=== PATIENT | male | born 1985 | race Caucasian/White ===

== ENCOUNTER 2022-12-06 15:56 | Emergency (ER) | payer OTHER, SELFPAY ==
--- NOTE | ~2022-12-06 | XR_ITS ---
EXAMINATION: XR knee LT 3V DATE: 12/06/2022 16:16 INDICATION: Left knee pain TECHNIQUE: Three views of the left knee were obtained. COMPARISON: None. FINDINGS: Alignment is normal. No fracture or osteochondral lesion. Joint spaces are normal with no e rosions. No joint effusion/synovitis. Soft tissues are unremarkable. IMPRESSION: 1. No acute osseous abnormality. Reviewed, dictated and finalized at location [facility] [employer]
[2022-12-06 16:07] VITALS: BP 132/89; PULSE 77; RESP 16; TEMP 36.5; O2SAT 100
--- NOTE | 2022-12-06 16:13 | ED.LOWEXIN ---
HPI - Extremity Injury (Lower) General Chief Complaint: Extremity Injury, Lower Stated Complaint: lt knee injury Time Seen by Provider: 12/06/22 16:20 Source: patient, RN notes reviewed and old records reviewed Mode of arrival: ambulatory Limitations: no limitations History of Present Illness HPI Narrative: 37-year-old male presents to the [facility] with medial left knee pain that has been going on for couple of weeks. Patient states that he started playing basketball on . And states the pain started shortly after starting to play. Reports pain is normally better by Friday. Was playing last night and had a sharp pain along the medial aspect of the left knee. Has full range of motion Patient states when he tries to squat down he feels like the knee is about to give out. No numbness or tingling. No treatment prior to arrival Related Data Home Medications Medication Instructions Recorded Confirmed dexmethylphenidate 40 mg 40 mg PO DAILY 12/06/22 12/06/22 capsule,extended release -74 Allergies Allergy/AdvReac Type Severity Reaction Status Date / Time No Known Allergies Allergy Unverified 12/06/22 16:04 Review of Systems Review of Systems: All systems reviewed & are unremarkable except as noted in HPI and below Constitutional: Constitutional: Reports no additional constitutional complaints Eyes: Eyes: Reports no additional eye complaints ENT: Reports system reviewed and no additional complaints, except as documented Cardiovascular: Cardiovascular: Reports no additional cardiovascular complaints, Denies chest pain and Denies dyspnea Respiratory: Respiratory: Reports no additional respiratory complaints, Denies chest congestion, Denies cough and Denies dyspnea Gastrointestinal: Gastrointestinal: Reports no additional gastrointestinal complaints, Denies abdominal pain, Denies nausea and Denies vomiting Musculoskeletal: Musculoskeletal: Reports as per HPI Integumentary/Breasts: Skin/Breast: Reports system reviewed and no additional complaints, except as docu Neurologic: Reports system reviewed and no additional complaints, except as documented Psychiatric: Psychiatric: Reports no additional psychiatric complaints Allergic/Immunologic: Allergic/Immunologic: Reports no additional allergic/immunologic complaints PMFSH Comments At the time of my signature, I reviewed and agree with the nursing past medical, surgical, social, and family history. There is no relevant family history pertinent to the patient complaint. Exam Const: General: cooperative, healthy appearing, comfortable, no acute distress, well developed, alert and well nourished Nutritional Appearance: well nourished Orientation/consciousness: patient oriented x3 Limitations: no limitations HENMT: Head: normal to inspection Ears: hearing grossly normal bilaterally and external ears normal Face/Nose/Sinus: Normal external nose present, Normal nares present, Normal nasal mucous membranes and turbinates present and normal facial exam Face and sinus: normal facial exam Mouth: Yes Normal oral and palatal mucosa present, Yes lip normal and Yes moist mucous membranes Eyes: General: appearance normal, both eyes and all related structures Alignment and Position: alignment normal Periorbital: periorbital findings normal Conjunctivae: conjunctivae normal Pupils: Equal, round and reactive pupils present EOM: EOMs intact bilaterally Neck: Neck: normal visual inspection, full ROM, no lymphadenopathy and no meningeal signs Chest: Chest palpation & inspection: normal inspection of the chest Resp: Effort & Inspection: normal respiratory effort and able to speak in complete sentences Cardio: Rate: regular rate Rhythm: regular rhythm Back/Spine/Pelvis: Cervical Spine: cervical ROM normal Thoracic/Lumbar Spine: No thoracic spinal tenderness Skin: General skin exam: normal color and no rashes or lesions noted Lesions: no lesions
== END 2022-12-06 16:32 | disposition home or self-care (01) ==
PROVIDERS: Emergency Provider Nurse Practitioner; PCP Physician Assistant
DX: S83.412A Sprain of medial collateral ligament of left knee, initial encounter (principal); X58.XXXA Exposure to other specified factors, initial encounter; Y93.67 Activity, basketball
CPT/HCPCS: 73562; 99203; G0463

== ENCOUNTER 2024-03-22 19:33 | Emergency (ER) | payer OTHER, SELFPAY ==
[2024-03-22 19:41] VITALS: BP 148/81; PULSE 70; RESP 18; TEMP 36.4; O2SAT 100
--- NOTE | 2024-03-22 19:48 | ED.LOWEXIN ---
HPI - Extremity Injury (Lower) General Chief Complaint: Extremity Injury, Lower Stated Complaint: Left Leg Pain Time Seen by Provider: 03/22/24 19:42 Source: patient and RN notes reviewed Mode of arrival: ambulatory Limitations: no limitations History of Present Illness HPI Narrative: Patient presents today complaining left calf pain. States he felt a pop in his lower calf this morning while running. Pain increases movement of the ankle and while walking. Denies numbness or tingling in the leg or foot. Currently rates his pain 7/10 and has tried no [id number] treatment prior to arrival. Related Data Home Medications Medication Instructions Recorded Confirmed dexmethylphenidate 40 mg 40 mg PO DAILY 12/06/22 03/22/24 capsule,extended release [id number] Allergies Allergy/AdvReac Type Severity Reaction Status Date / Time No Known Allergies Allergy Unverified 12/06/22 16:04 Review of Systems Review of Systems: CONSTITUTIONAL: Denies body aches, fever, chills, or sweats. EYES: Denies visual changes, redness, or discharge. ENT: Denies rhinorrhea, congestion, sore throat, or otalgia. CARDIOVASCULAR: Denies chest pain, palpitations, or edema. RESPIRATORY: Denies cough or dyspnea. GASTROINTESTINAL: Denies abdominal pain, nausea, vomiting, or diarrhea. GENITOURINARY: Denies dysuria or hematuria. SKIN: Denies rash, itching, or wounds. MUSCULOSKELETAL: + left lower leg pain NEUROLOGIC: Denies headache, numbness, tingling, or weakness. PSYCH: Denies depression or anxiety. PMFSH Comments At time of signature, I have reviewed and agree with nursing past medical, surgical, social and family history unless otherwise noted. Please see nursing chart for further information. There is no relevant family history pertinent to the presenting complaint Exam Narrative: GENERAL: Well-appearing, well-nourished, and in no acute distress. HEAD: Normocephalic, atraumatic. EYES: EOMI. No redness or drainage. Conjunctivae normal. ENT: Mucous membranes pink and moist. NECK: Normal AROM. CHEST: No respiratory distress. EXTREMITIES: Left leg: Tenderness to the distal calf, extending to the proximal Achilles tendon area. There is mild edema to the posterior ankle area. Negative Ibarra test. Plantar flexion and dorsal flexion strong against resistance, but painful. Distal sensation intact. SKIN: Warm, dry, no rash. Capillary refill normal. Normal skin turgor. NEURO: No focal deficits. Alert and oriented x3. Gait steady. PSYCH: Normal affect. No signs of depression or anxiety. Course Course Level of Care: Express Care Visit Vital Signs Vital signs: Vital Signs Temperature 97.6 F 03/22/24 19:41 Pulse Rate 70 03/22/24 19:41 Respiratory Rate 18 03/22/24 19:41 Blood Pressure 148/81 H 03/22/24 19:41 Pulse Oximetry 100 03/22/24 19:41 Oxygen Delivery Room Air 03/22/24 19:41 Temperature 97.6 F 03/22/24 19:41 Pulse Rate 70 03/22/24 19:41 Respiratory Rate 18 03/22/24 19:41 Blood Pressure 148/81 H 03/22/24 19:41 Pulse Oximetry 100 03/22/24 19:41 Oxygen Delivery Room Air 03/22/24 19:41 Reviewed MDM - Extremity Injury (Lower) MDM Narrative Medical decision making narrative: Patient will be prescribed an NSAID to take. Recommend ice and rest as well. Suggest orthopedic follow-up for further evaluation Differential Diagnosis Differential diagnosis: Likely other (Calf strain, Achilles tendon strain) Critical Care Time Critical Care Time Critical Care Time: No Discharge Plan Discharge Clinical Impression: Strain of Achilles tendon Patient Disposition: Home, Self-Care Condition: Stable Instructions: Achilles Tendinitis (ED) Additional Instructions: Please take the diclofenac as prescribed. Apply ice to help with inflammation. Rest your leg. Call and schedule a follow-up visit with your PCP or orthopedic physician for further evaluation and t
== END 2024-03-22 19:54 | disposition home or self-care (01) ==
PROVIDERS: Emergency Provider Nurse Practitioner
DX: S86.012A Strain of left Achilles tendon, initial encounter (principal); X50.3XXA Overexertion from repetitive movements, initial encounter; Y93.02 Activity, running; F90.9 Attention-deficit hyperactivity disorder, unspecified type
CPT/HCPCS: 99213; G0463

== ENCOUNTER 2024-05-23 13:20 | Emergency (ER) | payer OTHER, SELFPAY ==
[2024-05-23 13:30] VITALS: BP 119/74; PULSE 90; RESP 16; TEMP 37.2; O2SAT 98
--- NOTE | 2024-05-23 14:49 | ED.ANIMALBIT ---
HPI - Animal Bite General Chief Complaint: Animal Bite Stated Complaint: ?snake bite Time Seen by Provider: 05/23/24 14:12 Source: patient Mode of arrival: ambulatory Limitations: no limitations History of Present Illness HPI narrative: This is a 38-year-old male that presents to the emergency department for a possible animal bite. Reports he was cleaning up brush in his yard. He felt like something stung him. This was around 12:30 or so. When he went inside he noticed the he had two scratch doe in the area. Was concerned that he was possibly bit by a snake. He has mild redness surrounding the area, that he reports has improved since onset. He cleaned the area with soap and water. He is not up-to-date on tetanus vaccination. Related Data Home Medications Medication Instructions Recorded Confirmed dexmethylphenidate 40 mg 40 mg PO DAILY 12/06/22 03/22/24 capsule,extended release [id number] Allergies Allergy/AdvReac Type Severity Reaction Status Date / Time No Known Allergies Allergy Unverified 05/23/24 13:24 Review of Systems Review of Systems: CONSTITUTIONAL: Denies fever SKIN: Reports redness All systems reviewed & are unremarkable except as noted in HPI and below PMFSH Past Medical History Medical History (Updated 05/23/24 @ 16:22 by Noni Alegria PA-C) No active medical problems Social History Social History (Updated 05/23/24 @ 14:51 by Noni Alegria PA-C) Smoking status: Never smoker Exam Narrative: GENERAL: Well-appearing, well-nourished, and in no acute distress. HEAD: Normocephalic, atraumatic. EYES: EOMI. CHEST: No respiratory distress. HEART: Regular rate EXTREMITIES: Normal range of motion. No edema. Two, 1cm linear very superficial lacerations parallel to each other with very mild surrounding redness to the right lower leg SKIN: Warm, dry, no rash. NEURO: No focal deficits. Alert and oriented x3. PSYCH: Normal mood and affect Course Course Emergency Course: Poison control contacted. Patient updated and agrees with plan of care. Redness surrounding wound continues to improve. No swelling noted Vital Signs Vital signs: Vital Signs Temperature 98.9 F 05/23/24 13:30 Pulse Rate 90 05/23/24 13:30 Respiratory Rate 16 05/23/24 13:30 Blood Pressure 119/74 05/23/24 13:30 Pulse Oximetry 98 05/23/24 13:30 Temperature 98.9 F 05/23/24 13:30 Pulse Rate 90 05/23/24 13:30 Respiratory Rate 16 05/23/24 13:30 Blood Pressure 119/74 05/23/24 13:30 Pulse Oximetry 98 05/23/24 13:30 MDM - Animal Bite MDM Narrative Medical decision making narrative: Patient presents to the emergency department concern for a possible snake bite. Reports he was outside cleaning of brush and felt like something stuck in his leg. Noted 2 parallel doe and was concerned that he was maybe bit by a snake. There is mild redness surrounding that has continued to improve. No notable swelling. Patient was updated on tetanus vaccination. Poison control contacted. Patient updated and agrees with plan of care. Redness surrounding wound continues to improve. He was given warnings to return to the ER Differential Diagnosis Differential diagnosis: Likely bite by animal and other (insect sting, laceration) Critical Care Time Critical Care Time Critical Care Time: No Discharge Plan Discharge Clinical Impression: Sting of skin Patient Disposition: Home, Self-Care Condition: Stable Instructions: Acute Wounds (ED) Additional Instructions: Return to the emergency department if you experience fever, redness or swelling of your wound, abnormal drainage from your wound, blistering, or any other symptoms that are concerning to you. Do not soak the wound. Clean with mild soap and water daily Follow-up with your primary care doctor if needed Prescriptions: No Action dexmethylphenidate 40 mg capsule,ER biphasic 50-50 40 mg PO DAILY
--- NOTE | 2024-05-23 15:00 | PC.NURSE ---
SPOKE WITH BUNNY AT [facility] WHO STATES WATCH PT FOR APPROX 3 HOURS POST EXPOSURE TO MONITOR FOR SWELLING OR REACTION. BRITTANY PEÑA LISTENED IN ON PHONE CALL FOR ADDITIONAL INFORMATION
[2024-05-23] MEDS: TETANUS,DIPHTHERIA,AC PERTUSSIS ADULT (0.5 ML) BOOSTRIX IM (15:09)
== END 2024-05-23 16:42 | disposition home or self-care (01) ==
PROVIDERS: Emergency Provider Physician Assistant; PCP Physician Assistant
DX: T63.001A Toxic effect of unspecified snake venom, accidental (unintentional), initial encounter (principal); Z23 Encounter for immunization
CPT/HCPCS: 90471; 90715; 99282